=== PATIENT | female | born 1990 | race Caucasian/White ===

== ENCOUNTER 2018-08-23 18:15 | Emergency (ER) | payer SELFPAY | END 2018-08-23 18:41 | disposition left against medical advice (07) | LOC: ER 18:15 | DX: N39.0 Urinary tract infection, site not specified (principal); B37.9 Candidiasis, unspecified; Z53.21 Procedure and treatment not carried out due to patient leaving prior to being seen by health care provider ==

== ENCOUNTER 2018-09-10 18:45 | Emergency (ER) | payer SELFPAY ==
--- NOTE | 2018-09-11 15:08 | NUR ---
Went to see patient, she states she would like outpatient follow up with OBGYN because she was seen by urgent care and worked up recently for the same complaint. Nursing staff will give patient clinic and OBGYN list.
== END 2018-09-10 19:20 | disposition left against medical advice (07) ==
LOC: ER 18:45
DX: N93.9 Abnormal uterine and vaginal bleeding, unspecified (principal); Z53.21 Procedure and treatment not carried out due to patient leaving prior to being seen by health care provider

== ENCOUNTER 2018-10-30 23:31 | Emergency (ER) | payer SELFPAY ==
[~2018-10-30] VITALS: Ht 162.6 cm; Wt 57.6 kg
[2018-10-31 00:10] VITALS: BP 144/93
[2018-11-01] MEDS ORDERED: POLY17PO29 PO (21:09)
[2018-11-01] MEDS ORDERED: HYDR25SU18 RC (21:09)
[2018-11-01] MEDS ORDERED: CEPH500T PO (21:09)
== END 2018-10-31 00:45 | disposition left against medical advice (07) ==
LOC: ER 23:31
DX: K62.3 Rectal prolapse (principal); Z53.21 Procedure and treatment not carried out due to patient leaving prior to being seen by health care provider

== ENCOUNTER 2018-11-01 19:07 | Emergency (ER) | payer SELFPAY ==
[~2018-11-01] VITALS: Ht 162.6 cm; Wt 57.6 kg
[2018-11-01 19:41] LABS: BILIRUBIN,URINE SMALL (NEG); CLARITY,URINE CLOUDY; NITRITE,URINE NEGATIVE (NEG); PROTEIN,URINE NEGATIVE (NEG-TRACE)
[2018-11-01 19:46] LABS: BARBITURATES NEG (NEG); BENZODIAZEPINES POS (NEG); CANNABINOIDS NEG (NEG); COCAINE NEG (NEG); METHADONE NEG (NEG); OPIATES NEG (NEG); PHENCYCLIDINE NEG (NEG)
[2018-11-01 19:49] LABS: AMPHETAMINE/METHAMPHETAMINE POS (NEG)
[2018-11-01 19:57] LABS: COLOR,URINE DK YELLOW
[2018-11-01 19:57] LABS: BASO # 0.1 x10^3/uL (0.0-0.2); BASO % 1 % (0-3); EOS # 0.2 x10^3/uL (0.0-0.7); EOS % 4 % (0-3); HEMATOCRIT 35.3 % (36.0-47.0); HEMOGLOBIN 12.1 g/dL (12.0-15.5); LYMPH # 1.7 x10^3/uL (1.0-4.8); LYMPH % 44 % (24-48); MEAN CORPUSCULAR HEMOGLOBIN 30 pg (25-35); MEAN CORPUSCULAR HGB CONC 34 g/dL (31-37); MEAN CORPUSCULAR VOLUME 87 fL (79-100); MONO # 0.3 x10^3/uL (0.0-1.1); MONO % 8 % (0-9); NEUT # 1.7 x10^3uL (1.8-7.7); NEUT % 43 % (31-73); PLATELET COUNT 267 x10^3/uL (140-400); RED BLOOD COUNT 4.08 x10^6/uL (3.50-5.40); RED CELL DISTRIBUTION WIDTH 13.9 % (11.5-14.5); WHITE BLOOD COUNT 3.9 x10^3/uL (4.0-11.0)
[2018-11-01 19:59] LABS: BACTERIA,URINE MANY /HPF (0-FEW); RBC,URINE 0 /HPF (0-2); SQUAMOUS EPITHELIAL CELL,UR MANY /LPF; WBC,URINE 20-40 /HPF (0-4)
[2018-11-01 20:10] LABS: CALCIUM 8.9 mg/dL (8.5-10.1); CREATININE 0.6 mg/dL (0.6-1.0); GFR 119.9; POTASSIUM 3.7 mmol/L (3.5-5.1)
[2018-11-01] MEDS ORDERED: IOHEXOL 300 MG/ML 100ML VIAL. IV ONE (20:15)
[2018-11-01 20:16] LABS: ALBUMIN 3.8 g/dL (3.4-5.0); ALBUMIN/GLOBULIN RATIO 1.3 (1.0-1.7); TOTAL BILIRUBIN 0.2 mg/dL (0.2-1.0); TOTAL PROTEIN 6.8 g/dL (6.4-8.2)
[2018-11-01] MEDS ORDERED: CONTRAST GIVEN. MC PRN (20:30)
--- NOTE | 2018-11-01 20:47 | RAD ---
CT scan of the abdomen and pelvis with contrast 11/01/2018 CLINICAL HISTORY: Abdominal pain and constipation. TECHNIQUE: After the intravenous administration of 75 cc of Omnipaque 300, contiguous, 5 mm axial sections were obtained through the abdomen and pelvis. One or more of the following individualized dose reduction techniques were utilized for this study: 1. Automated exposure control. 2. Adjustment of the mA and/or kV according to patient size. 3. Use of iterative reconstruction technique. FINDINGS: Images through the lung bases are within normal limits. The liver, spleen, pancreas, adrenal glands and kidneys are within normal limits. The abdominal aorta tapers normally. The gallbladder is contracted. No free fluid or free air is seen within the abdomen. There is no evidence of bowel obstruction. Moderate to large amount stool is seen throughout the colon. The appendix is well-visualized and is within normal limits. Food debris is seen within the stomach. Images through the pelvis demonstrate the urinary bladder distended with urine. Calcifications are seen within the pelvis consistent with phleboliths. No free fluid is seen. Minimal S-shaped curvature of the thoracolumbar spine is seen. IMPRESSION: Moderate to large amount stool is seen throughout the colon. No acute abnormality is seen. Electronically signed by: Christophe Carias MD (11/01/2018 8:45 PM) [facility]
[2018-11-01 21:00] VITALS: BP 115/67
[2018-11-01] MEDS ORDERED: HYDR25SU18 RC (21:09)
[2018-11-01] MEDS ORDERED: POLY17PO29 PO (21:09)
[2018-11-01] MEDS ORDERED: CEPH500T PO (21:09)
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
== END 2018-11-01 21:30 | disposition home or self-care (01) ==
LOC: ER 19:07
DX: K59.00 Constipation, unspecified (principal); N39.0 Urinary tract infection, site not specified; K64.9 Unspecified hemorrhoids; K62.3 Rectal prolapse; F32.9 Major depressive disorder, single episode, unspecified; F17.210 Nicotine dependence, cigarettes, uncomplicated; Z88.1 Allergy status to other antibiotic agents; Z88.2 Allergy status to sulfonamides
CPT/HCPCS: 36415; 74177; 80053; 80307; 81001; 81025; 83690; 85025; 99285; G0480; Q9967

== ENCOUNTER 2019-02-16 18:31 | Emergency (ER) | payer SELFPAY ==
[~2019-02-16 18:31] MED LIST: CEPH500T PO; HYDR25SU18 RC; POLY17PO29 PO
== END 2019-02-16 18:53 | disposition left against medical advice (07) ==
LOC: ER 18:31
DX: K62.3 Rectal prolapse (principal); B89 Unspecified parasitic disease; R10.9 Unspecified abdominal pain; Z53.21 Procedure and treatment not carried out due to patient leaving prior to being seen by health care provider

== ENCOUNTER 2019-03-16 21:10 | Emergency (ER) | payer SELFPAY ==
[~2019-03-16] VITALS: Ht 162.6 cm; Wt 61.2 kg
[2019-03-16] MEDS ORDERED: IV NORMAL SALINE 1000ML BAG 1,000 ML IV ONE (22:45)
[2019-03-16 22:47] LABS: BILIRUBIN,URINE SMALL (NEG); CLARITY,URINE TURBID; COLOR,URINE AMBER; NITRITE,URINE NEGATIVE (NEG); PH,URINE 5.5; PROTEIN,URINE 30 mg/dL (NEG-TRACE); UROBILINOGEN,URINE 0.2 mg/dL (0.2 mg/dL)
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
[2019-03-16 23:06] LABS: SQUAMOUS EPITHELIAL CELL,UR MOD /LPF
[2019-03-16 23:07] LABS: AMORPHOUS SEDIMENT,UR PRESENT /HPF; BACTERIA,URINE FEW /HPF (0-FEW); RBC,URINE OCC /HPF (0-2); WBC,URINE OCC /HPF (0-4)
[2019-03-16] MEDS ORDERED: CEPH-264 PO (23:39)
[2019-03-17 00:09] VITALS: BP 117/73
[2019-03-19 05:10] LABS: GC PROBE Negative (Negative)
== END 2019-03-17 00:10 | disposition home or self-care (01) ==
LOC: ER 21:10
DX: N39.0 Urinary tract infection, site not specified (principal); Z20.2 Contact with and (suspected) exposure to infections with a predominantly sexual mode of transmission; Z88.1 Allergy status to other antibiotic agents; Z88.2 Allergy status to sulfonamides
CPT/HCPCS: 81001; 81025; 87086; 87491; 87591; 99284; J7030; Q0111